=== PATIENT | male | born 1940 | race Hispanic/Latino ===

== ENCOUNTER 2017-09-25 09:56 | Outpatient (CLI) | payer MEDICARE, BC ==
--- NOTE | 2017-09-25 13:06 | MRI ---
MRI OF THE LUMBAR SPINE WITHOUT CONTRAST: Date: 09-25-17 Comparison: None. History: Back pain with sciatica on the left. Technique: Multiplanar, multisequence of the lumbar spine is provided without contrast media. FINDINGS: Sagittal STIR imaging demonstrates no focal area of osseous marrow edema. Diffuse central canal stenosis is noted on the basis of congenitially short pedicles. Assuming five l umbar type vertebral bodies, conus medullaris terminates at L1. T12-L1: There is disc space narrowing and disc desiccation. There is mild central canal stenosis and mild bilateral facet hypertrophy. No significant neural foraminal stenosis. L1-2: Mild central canal stenosis on the basis of congenitally short pedicles. Intervertebral disc he ight and signal intensity is within normal limits. Mild bilateral facet hypertrophy. No significant n eural foraminal stenosis. L2-3: Moderate bilateral facet hypertrophy and hypertrophy of the ligamentum flavum. There is disc sp kimberly narrowing, disc desiccation and disc bulge effacing the thecal sac and exerting mass effect on ne rve root of the cauda equina with a moderate to severe degree of central canal stenosis. No significa nt neural foraminal stenosis. L3-4: There is disc space narrowing, disc desiccation and mild disc bulge with mild central canal constance nosis. Bilateral facet hypertrophy noted with mild bilateral neural foraminal stenosis, left greater than right. Of note, there is an oval area of decreased T1 and T2 signal within the anterior epidural space in the left paracentral region posterior to the L4 vertebral body. This is felt to most likely represent an extruded and/or sequestered disc fragment. It is uncertain whether this is a disc fragm ent which extends from the L3-4 disc down or the L4-5 disc up. It causes significant left lateral rec ess stenosis of the axial level of the L4 vertebral body and measures in the 1.4 cm range in cranioca udal dimension and 9 mm range in AP dimension. L4-5: Prominent facet hypertrophy and hypertrophy of the ligamentum flavum. Disc space narrowing, dis c desiccation and disc bulge present with a moderate degree of central canal stenosis. There is mild right and severe left neural foraminal stenosis. There is a foraminal and post foraminal disc herniat ion on the left causing severe left neural foraminal stenosis. This does not appear to be in continui ty with the presumed disc fragment posterior to the L4 vertebral body. L5-S1: There is disc space narrowing, disc desiccation and mild disc bulge. No significant central ca nal stenosis. Bilateral facet hypertrophy. Moderate/severe bilateral neural foraminal stenosis is not ed, left greater than right. Imaged retroperitoneal structures are grossly unremarkable. IMPRESSION: 1. Multilevel degenerative disc disease as detailed above. There is a mass in the anterior epidural s pace posterior to the L4 vertebral body suggesting a sequestered disc fragment which may emanate from L3-4 or L4-5 disc. 2. 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 Additional areas of central canal and neural foraminal stenosis as docume nted above. POS: AMANDA
== END 2017-09-25 09:57 | disposition home or self-care (01) ==
LOC: MRI 09:56
PROVIDERS: ATTEND Family Medicine
DX: M54.42 Lumbago with sciatica, left side (principal); M51.26 Other intervertebral disc displacement, lumbar region; M51.36 Other intervertebral disc degeneration, lumbar region; M48.061 Spinal stenosis, lumbar region without neurogenic claudication; M99.53 Intervertebral disc stenosis of neural canal of lumbar region; M89.9 Disorder of bone, unspecified
CPT/HCPCS: 72148

== ENCOUNTER 2024-09-28 14:30 | Inpatient (IN) | payer MEDICARE, BC ==
[2024-09-29] MEDS ORDERED: Albumin 5% 500 ML ONE (06:24)
[2024-09-29] MEDS ORDERED: Bupivacaine PF 0.5% 30 ML VIAL ONE (06:24)
[2024-09-29] MEDS ORDERED: Dexamethasone 4 mg/ml Vial ONE (06:24)
[2024-09-29] MEDS ORDERED: PHENYLEPHRINE-NS 100 MCG/ML 10 ML SYRINGE ONE (06:24)
[2024-09-29] MEDS ORDERED: EPINEPHrine 1 MG/ML VIAL ONE (06:24)
[2024-09-29] MEDS ORDERED: Heparin 10,000 UNITS/1 ML VIAL 30,000 UNITS in Sodium Chloride 0.9% 1,000 ML FS SCH (06:45)
[2024-09-29] MEDS ORDERED: Dexmedetomidine 200 MCG/2 ML VIAL ONE (06:47)
[2024-09-29] MEDS ORDERED: Lidocaine 2% PF 5 ML VIAL ONE (06:47)
[2024-09-29] MEDS ORDERED: fentaNYL PF 100 MCG/2 ML SYRINGE ONE (06:47)
[2024-09-29] MEDS ORDERED: Vecuronium 10 MG VIAL ONE (06:47)
[2024-09-29] MEDS ORDERED: PROPOFOL 20 ML ONE (06:48)
[2024-09-29] MEDS ORDERED: Midazolam HCl 2 mg/2 ml Vial ONE ×2 (06:50→10:18)
[2024-09-29] MEDS ORDERED: Lidocaine 1% MPF 2 ML VIAL ONE (06:59)
[2024-09-29] MEDS ORDERED: CEFAZOLIN 2 GM VIAL ONE (07:33)
[2024-09-29] MEDS ORDERED: Esmolol 100 MG/10 ML VIAL ONE (07:59)
[2024-09-29] MEDS ORDERED: Gentamicin 80 MG/2 ML VIAL ONE (08:19)
[2024-09-29] MEDS ORDERED: SUCCINYLCHOLINE/SOD CL,ISO/PF 200 MG/10 ML SYRINGE FS ONE (08:50)
[2024-09-29] MEDS ORDERED: Dexamethasone 20 MG/5 ML VIAL ONE (08:50)
[2024-09-29] MEDS ORDERED: Ondansetron PF 4 MG/2 ML Vial ONE (08:50)
[2024-09-29] MEDS ORDERED: Rocuronium Bromide 10 MG/ML (10ML VIAL) ONE (09:16)
[2024-09-29] MEDS ORDERED: Insulin Regular, Human 100 UNIT/ML 10 ML VIAL ONE (10:01)
[2024-09-29] MEDS ORDERED: SUGAMMADEX SODIUM 200 MG/2 ML VIAL ONE (11:07)
[2024-09-29] MEDS ORDERED: Promethazine HCl 25 MG/ML VIAL IM PRN (11:59)
[2024-09-29] MEDS ORDERED: hydrALAZINE 20 MG/ML VIAL SLOW IVP PRN (11:59)
[2024-09-29] MEDS ORDERED: Morphine 2 MG/ML VIAL SLOW IVP PRN (11:59)
[2024-09-29] MEDS ORDERED: fentaNYL 50 mcg/mL 1 mL Vial SLOW IVP PRN ×2 (11:59)
[2024-09-29] MEDS ORDERED: traMADol HCl 50 MG TAB PO PRN ×2 (11:59)
[2024-09-29] MEDS ORDERED: Guaifenesin DM 100-10/5 ML UDCUP PO PRN (11:59)
[2024-09-29] MEDS ORDERED: Mag-Al 1200 mg/1200 mg/30 ML UDCUP PO PRN (11:59)
[2024-09-29] MEDS ORDERED: Hetastarch 6% 500 ML 500 ML IVPB PRN (11:59)
[2024-09-29] MEDS ORDERED: Ipratropium/Albuterol 3 ML NEB NEB PRN (11:59)
[2024-09-29] MEDS ORDERED: Albumin 5% 12.5 GM (250 mL) BOT IVPB PRN (11:59)
[2024-09-29] MEDS ORDERED: Nitroglycerin 50 MG/250 ML BOT 250 ML IVPB PRN (11:59)
[2024-09-29] MEDS ORDERED: Bisacodyl 5 MG TAB PO PRN (11:59)
[2024-09-29] MEDS ORDERED: Bisacodyl 10 MG SUPP PR PRN (11:59)
[2024-09-29] MEDS ORDERED: NOREPINEPHRINE 8 MG/250 ML-D5W 250 ML IVPB PRN (11:59)
[2024-09-29] MEDS ORDERED: Dextrose 50% Abboject 50 ML SYRINGE SLOW IVP PRN (12:15)
[2024-09-29] MEDS ORDERED: Dextrose 5% in Water 1,000 ML IV PRN (12:15)
[2024-09-29] MEDS ORDERED: Glucagon 1 MG/ML KIT SC PRN (12:15)
[2024-09-29] MEDS: INSULIN REGULAR IN 0.9 % NACL 100 UNITS in Premix 1 BAG IVPB SCH (12:26)
[2024-09-29] MEDS: Magnesium 2 GM/50 ML(in water) 2 GM in Premix 1 BAG IVPB SCH (12:26)
[2024-09-29] MEDS: Ketorolac Tromethamine 30 MG (1 mL) VIAL IVP SCH (12:29)
[2024-09-29] MEDS: D5 1/2 NS w/20 mEq KCL 1,000 ML IV SCH (12:29)
[2024-09-29 12:30] LABS: #Basophils Less than 0.03 10x3/uL (0.0-0.2); %Basophils 0.2 % (0.0-1.0); %Eosinophils 0.6 % (0.0-10.0); %Lymphocytes 16.2 % (21.0-51.0); %Monocytes 3.6 % (0.0-10.0); %Neutrophils 78.3 % (42.0-75.0); Mean Corpuscular HGB CONC 32.1 g/dL (32.0-36.0); Mean Corpuscular Hemoglobin 30.5 pg (27.0-31.0); Mean Corpuscular Volume 94.9 fL (78.0-98.0); Mean Platelet Volume 10.6 fL (7.4-10.4); Platelet Count 215 10x3/uL (130-400); RBC Distribution Width 13.7 % (11.5-14.5); Red Blood Cell (RBC) Count 2.95 mill/uL (4.70-6.10)
[2024-09-29] MEDS: Post-Op Insulin Drip Protocol IVPB ONE (12:31)
[2024-09-29 13:02] LABS: Anion Gap 12 mmol/L (10-20); BUN (Urea Nitrogen) 15 mg/dL (8.4-25.7); Calc. Creatinine Clearance 56 mL/min (70-130); Calcium 7.6 mg/dL (7.8-10.44); Carbon Dioxide 19 mmol/L (23-31); Chloride 112 mmol/L (98-107); Estimated GFR 76; Glucose 240 mg/dL (83-110); Sodium 139 mmol/L (136-145)
[2024-09-29 14:19] LABS: INR-International Normal Ratio 1.3; Prothrombin Time 15.7 sec (12.0-14.7)
[2024-09-29 14:20] LABS: PTT 37.4 sec (22.9-36.1)
[2024-09-29] MEDS: Albumin 5% 12.5 GM (250 mL) BOT IVPB PRN (14:42)
[2024-09-29] MEDS: CEFAZOLIN 2 GM in Sodium Chloride 0.9% 100 ML IVPB SCH (14:42)
[2024-09-29 15:40] LABS: Hemoglobin A1c 5.9 % (4.0-6.0)
[2024-09-29 15:41] LABS: Cardiac Risk 4.3 (Less than 4.5)
[2024-09-29 18:49] LABS: Hematocrit 28.6 % (42.0-52.0); Hemoglobin 9.4 g/dL (14.0-18.0)
[2024-09-29] MEDS: Potassium Chloride 20 MEQ (100 mL) BAG IVPB PRN (18:53)
[2024-09-29 19:15] LABS: Potassium 4.4 mmol/L (3.5-5.1)
[2024-09-29] MEDS: Famotidine/PF 20 mg/2ml Vial SLOW IVP SCH (20:42)
[2024-09-29] MEDS: Atorvastatin Calcium 40 MG TAB PO SCH (20:42)
[2024-09-29] MEDS: Finasteride 5 MG TAB PO SCH (20:42)
[2024-09-29] MEDS: Tamsulosin HCl 0.4 MG CAP PO SCH (20:42)
[2024-09-30] MEDS ORDERED: Ketorolac Tromethamine 30 MG (1 mL) VIAL ONE ×2 (06:18→23:52)
[2024-09-30] MEDS ORDERED: Insulin Glargine 30 UNITS/0.3 ML VIAL SC PRN (12:04)
[2024-09-30] MEDS ORDERED: Tamsulosin HCl 0.4 MG CAP ONE (20:30)
[2024-09-30] MEDS ORDERED: Atorvastatin Calcium 40 MG TAB ONE (20:30)
[2024-09-30] MEDS ORDERED: Finasteride 5 MG TAB ONE (20:30)
[2024-10-01] MEDS ORDERED: Pantoprazole DR 40 MG TAB ONE (10:25)
[2024-10-01] MEDS ORDERED: Aspirin 325 MG TAB ONE (10:25)
[2024-10-01] MEDS ORDERED: Magnesium 2 GM/50 ML BAG (IN WATER) ONE (10:25)
[2024-10-01] MEDS ORDERED: Fenofibrate Nanocrystallized 145 MG TAB ONE (10:25)
[2024-10-01] MEDS ORDERED: Famotidine/PF 20 mg/2ml Vial ONE (10:25)
[2024-10-01] MEDS ORDERED: Cholecalciferol 1,000 UNITS (25 MCG) TAB ONE (10:25)
[2024-10-01] MEDS ORDERED: Ketorolac Tromethamine 30 MG (1 mL) VIAL ONE (12:40)
[2024-10-01] MEDS: Aspirin 325 MG TAB PO SCH (15:58)
[2024-10-01] MEDS: Cholecalciferol 1,000 UNITS (25 MCG) TAB PO SCH (15:58)
[2024-10-01] MEDS: Fenofibrate Nanocrystallized 145 MG TAB PO SCH (15:59)
[2024-10-01] MEDS: Magnesium 2 GM/50 ML(in water) 2 GM in Premix 1 BAG IVPB SCH (16:00)
[2024-10-01] MEDS: Insulin Regular, Human 100 UNIT/ML 10 ML VIAL SC PRN (16:15)
[2024-10-01] MEDS: Pantoprazole DR 40 MG TAB ONE ×2 (21:08)
[2024-10-01] MEDS: Potassium Chloride 10 MEQ TAB ONE (21:08)
[2024-10-01] MEDS: Hydrochlorothiazide 25 MG TAB ONE (21:08)
[2024-10-01] MEDS: Famotidine 20 MG TAB ONE (21:08)
[2024-10-01] MEDS: Insulin Regular, Human 100 UNIT/ML 10 ML VIAL ONE (21:09)
[2024-10-01] MEDS: Famotidine/PF 20 mg/2ml Vial ONE (21:24)
[2024-10-02 03:53] LABS: #Basophils Less than 0.03 10x3/uL (0.0-0.2); %Basophils 0.3 % (0.0-1.0); %Eosinophils 1.6 % (0.0-10.0); %Lymphocytes 31.9 % (21.0-51.0); %Monocytes 8.3 % (0.0-10.0); %Neutrophils 57.6 % (42.0-75.0); Hematocrit 25.6 % (42.0-52.0); Hemoglobin 8.2 g/dL (14.0-18.0); Mean Corpuscular Hemoglobin 30.3 pg (27.0-31.0); Mean Corpuscular Volume 94.5 fL (78.0-98.0); Mean Platelet Volume 11.3 fL (7.4-10.4); Platelet Count 238 10x3/uL (130-400); RBC Distribution Width 13.7 % (11.5-14.5); Red Blood Cell (RBC) Count 2.71 mill/uL (4.70-6.10)
[2024-10-02 04:59] LABS: Anion Gap 12 mmol/L (10-20); BUN (Urea Nitrogen) 20 mg/dL (8.4-25.7); Calc. Creatinine Clearance 45 mL/min (70-130); Calcium 8.1 mg/dL (7.8-10.44); Carbon Dioxide 21 mmol/L (23-31); Chloride 108 mmol/L (98-107); Estimated GFR 56; Glucose 120 mg/dL (83-110); Potassium 3.9 mmol/L (3.5-5.1); Sodium 137 mmol/L (136-145)
[2024-10-02] MEDS: Furosemide 20 MG TAB ONE (11:05)
[2024-10-02] MEDS: Potassium Chloride 10 MEQ TAB ONE (11:14)
[2024-10-02] MEDS: Hydrochlorothiazide 25 MG TAB ONE (11:14)
[2024-10-02] MEDS: glipiZIDE 5 MG TAB ONE (11:14)
[2024-10-02] MEDS: Pantoprazole DR 40 MG TAB ONE (11:14)
[2024-10-02] MEDS: Pantoprazole DR 40 MG TAB PO SCH (11:15)
[2024-10-02] MEDS: Insulin Lispro 100 UNIT/ML 10 ML VIAL ONE (11:18)
[2024-10-02 14:49] LABS: Anion Gap 11 mmol/L (10-20); BUN (Urea Nitrogen) 19 mg/dL (8.4-25.7); Calc. Creatinine Clearance 47 mL/min (70-130); Carbon Dioxide 22 mmol/L (23-31); Chloride 109 mmol/L (98-107); Estimated GFR 61; Glucose 114 mg/dL (83-110); Potassium 3.9 mmol/L (3.5-5.1); Sodium 138 mmol/L (136-145)
[2024-10-02 17:34] LABS: #Basophils Less than 0.03 10x3/uL (0.0-0.2); %Basophils 0.1 % (0.0-1.0); %Eosinophils 0.4 % (0.0-10.0); %Lymphocytes 25.3 % (21.0-51.0); %Monocytes 8.5 % (0.0-10.0); %Neutrophils 65.2 % (42.0-75.0); Hematocrit 25.8 % (42.0-52.0); Hemoglobin 8.5 g/dL (14.0-18.0); Mean Corpuscular HGB CONC 32.9 g/dL (32.0-36.0); Mean Corpuscular Hemoglobin 30.9 pg (27.0-31.0); Mean Corpuscular Volume 93.8 fL (78.0-98.0); Mean Platelet Volume 11.7 fL (7.4-10.4); Platelet Count 218 10x3/uL (130-400); RBC Distribution Width 14.1 % (11.5-14.5); Red Blood Cell (RBC) Count 2.75 mill/uL (4.70-6.10)
[2024-10-03] MEDS: Potassium Chloride 10 MEQ TAB ONE (09:11)
[2024-10-03] MEDS: Hydrochlorothiazide 25 MG TAB ONE (09:11)
[2024-10-03] MEDS: glipiZIDE 5 MG TAB ONE (09:11)
[2024-10-03] MEDS: Pantoprazole DR 40 MG TAB ONE (09:11)
[2024-10-03] MEDS: Furosemide 20 MG TAB ONE (09:11)
[2024-10-03] MEDS: Senokot S 8.6-50 MG TAB PO SCH ×2 (09:51→20:14)
[2024-10-03] MEDS: Acetaminophen 325 MG TAB PO PRN (11:45)
[2024-10-04] MEDS: metFORMIN XR 500 MG ER.TAB PO SCH (09:36)
[2024-10-04] MEDS: glipiZIDE 5 MG TAB ONE (09:36)
[2024-10-04] MEDS: Metoprolol Tartrate 25 MG TAB PO SCH (09:36)
[2024-10-04] MEDS: glipiZIDE 5 MG TAB PO SCH (09:36)
[2024-10-04] MEDS: Metoprolol Tartrate 5 MG (5 mL) VIAL IVP SCH (12:31)
[2024-10-04] MEDS: Phenol 177 ML BOT PO PRN (18:05)
[2024-10-05 04:20] LABS: #Basophils Less than 0.03 10x3/uL (0.0-0.2); #Eosinophils Less than 0.03 10x3/uL (0.0-0.7); %Basophils 0.2 % (0.0-1.0); %Lymphocytes 12.3 % (21.0-51.0); %Monocytes 6.1 % (0.0-10.0); %Neutrophils 80.9 % (42.0-75.0); Hematocrit 28.6 % (42.0-52.0); Hemoglobin 9.5 g/dL (14.0-18.0); Mean Corpuscular HGB CONC 33.2 g/dL (32.0-36.0); Mean Corpuscular Hemoglobin 31.1 pg (27.0-31.0); Mean Corpuscular Volume 93.8 fL (78.0-98.0); Mean Platelet Volume 10.8 fL (7.4-10.4); Platelet Count 303 10x3/uL (130-400); RBC Distribution Width 13.4 % (11.5-14.5); Red Blood Cell (RBC) Count 3.05 mill/uL (4.70-6.10)
[2024-10-05 04:44] LABS: Anion Gap 17 mmol/L (10-20); BUN (Urea Nitrogen) 37 mg/dL (8.4-25.7); Calc. Creatinine Clearance 0 mL/min (70-130); Calcium 9.4 mg/dL (7.8-10.44); Carbon Dioxide 20 mmol/L (23-31); Chloride 102 mmol/L (98-107); Estimated GFR 27; Glucose 137 mg/dL (83-110); Potassium 4.8 mmol/L (3.5-5.1); Sodium 134 mmol/L (136-145)
[2024-10-05 04:53] LABS: INR-International Normal Ratio 1.2; PTT 44.7 sec (22.9-36.1); Prothrombin Time 14.8 sec (12.0-14.7)
[2024-10-05] MEDS: Hydrochlorothiazide 25 MG TAB ONE (15:34)
[2024-10-05] MEDS: Pantoprazole DR 40 MG TAB ONE (16:10)
[2024-10-05] MEDS: Furosemide 20 MG TAB ONE (16:10)
[2024-10-05] MEDS: glipiZIDE 5 MG TAB ONE (16:10)
[2024-10-05] MEDS: Potassium Chloride 10 MEQ TAB ONE (16:10)
[2024-10-05] MEDS: Apixaban 5 MG TAB PO SCH (20:35)
[2024-10-06] MEDS: Aspirin 81 mg Enteric Coated Tablet PO SCH (08:41)
[2024-10-06] MEDS: Pantoprazole DR 40 MG TAB ONE (08:43)
[2024-10-06] MEDS: Potassium Chloride 10 MEQ TAB ONE (09:53)
[2024-10-06] MEDS: LevoFLOXacin 500 MG TAB PO SCH (10:05)
[2024-10-06 10:23] VITALS: BMI 27.3
[2024-10-06] MEDS: Ondansetron PF 4 MG/2 ML Vial IVP PRN (11:07)
[2024-10-07 06:24] VITALS: BMI 28.0
[2024-10-07] MEDS: Metoclopramide HCl 10 MG (2 mL) VIAL IVP SCH (07:45)
[2024-10-08 04:37] LABS: Hematocrit 26.6 % (42.0-52.0); Hemoglobin 8.7 g/dL (14.0-18.0); Platelet Count 451 10x3/uL (130-400)
[2024-10-08 16:33] VITALS: BP 126/74; TEMP 98.2
== END 2024-10-08 22:39 | DRG 236 ==
LOC: SURG A 09-29 05:28 → CCU 09-29 12:03 → EDSTATUS 09-29 14:30 → PCU 10-02 06:34
PROVIDERS: ADMIT Thoracic Surgery (Cardiothoracic Vascular Surgery); ATTEND Thoracic Surgery (Cardiothoracic Vascular Surgery)
PROC: 021109W Bypass Coronary Artery, Two Arteries from Aorta with Autologous Venous Tissue, Open Approach (ICD-10-PCS; principal; 2024-09-29)
PROC: 02100Z9 Bypass Coronary Artery, One Artery from Left Internal Mammary, Open Approach (ICD-10-PCS; 2024-09-29)
PROC: 06BQ4ZZ Excision of Left Saphenous Vein, Percutaneous Endoscopic Approach (ICD-10-PCS; 2024-09-29)
PROC: 02L70CK Occlusion of Left Atrial Appendage with Extraluminal Device, Open Approach (ICD-10-PCS; 2024-09-29)
DX: I25.10 Atherosclerotic heart disease of native coronary artery without angina pectoris (principal); I82.4Z2 Acute embolism and thrombosis of unspecified deep veins of left distal lower extremity; E11.9 Type 2 diabetes mellitus without complications; N40.0 Benign prostatic hyperplasia without lower urinary tract symptoms; E78.5 Hyperlipidemia, unspecified; M54.32 Sciatica, left side; R19.7 Diarrhea, unspecified; Z98.42 Cataract extraction status, left eye; Z79.899 Other long term (current) drug therapy; Z98.41 Cataract extraction status, right eye
CPT/HCPCS: 36415; 36416; 36430; 71045; 80048; 80061; 83036; 85014; 85018; 85025; 85049; 85610; 85730; 86850; 86900; 86901; 93798; 93970; A4311; A4648; C1747; C1751; J0171; J0665; J1100; J1580; J1642; J1815; J1885; J2250; J2405; J2704; J2765; J3475; J3480; J3490; P9045